=== PATIENT | female | born 1980 | race African-American/Black ===

== ENCOUNTER 2016-10-19 12:57 | Emergency (ER) | payer OTHER ==
[~2016-10-19] VITALS: Ht 167.6 cm; Wt 158.8 kg
[~2016-10-19 12:57] MED LIST: BENZ200C39 PO; METH4TAB2 PO; PRED50TA PO; VENTOLIN HFA18 GM IH
[2016-10-19] MEDS ORDERED: KETOROLAC TROMETHAMINE 30 MG/ML INJ. IV ONE (13:15)
[2016-10-19] MEDS ORDERED: diphenhydrAMINE 50 MG/ML VIAL IVP ONE (13:15)
[2016-10-19] MEDS ORDERED: IV NORMAL SALINE 1000ML BAG 1,000 ML IV ONE (13:15)
[2016-10-19 13:30] LABS: BASO % 1 % (0-3); EOS % 1 % (0-3); HEMATOCRIT 35.8 % (36.0-47.0); HEMOGLOBIN 11.4 g/dL (12.0-15.5); LYMPH # 1.4 x10^3/uL (1.0-4.8); LYMPH % 32 % (24-48); MEAN CORPUSCULAR HEMOGLOBIN 25 pg (25-35); MEAN CORPUSCULAR HGB CONC 32 g/dL (31-37); MEAN CORPUSCULAR VOLUME 80 fL (79-100); MONO % 9 % (0-9); NEUT % 57 % (31-73); PLATELET COUNT 114 x10^3/uL (140-400); RED CELL DISTRIBUTION WIDTH 14.9 % (11.5-14.5); WHITE BLOOD COUNT 4.2 x10^3/uL (4.0-11.0)
--- NOTE | 2016-10-19 13:33 | EKG ---
[facility] [address] [place] [address] Test Date: 2016-10-19 Test Time: 13:27:51 Pat Name: KATELYN DOMÍNGUEZ Department: Room: Gender: F Social Insurance Adviser: : 1980 Requested By: EDIL ALCANTARA Order Number: [id number] Reading MD: Edward Carvalho Measurements Intervals Danese Rate: 59 P: 26 OR: 168 QRS: 5 QRSD: 74 T: 10 QT: 404 QTc: 404 Interpretive Statements SINUS RHYTHM NORMAL ECG RI6.01 Unconfirmed report Compared to ECG 06/01/2014 19:29:17 No significant changes Electronically Signed On 10-24-2016 9:30:49 CDT by Edward Carvalho
--- NOTE | 2016-10-19 13:33 | PHYS DOC ---
Past Medical History Past Medical History: Asthma Additional Past Medical Histor: OBESITY Past Surgical History: , Gastric Bypass Additional Past Surgical Histo: BARIATRIC SX, BILATERAL KNEE Alcohol Use: Rarely Drug Use: None Adult General Chief Complaint Chief Complaint: DIZZY/LIGHT HEADED HPI HPI Patient is a 36 year old female presenting to the emergency department for evaluation of dizziness. Patient is not able to describe the symptoms very well but she does not say it is spinning sensation or feeling that she is going to pass out rather it feels as if there is pressure in her head and that it feels like she was on an airplane. She says she feels woozy and that the sensation is worse when she moves her head. She denies any nausea vomiting or pain anywhere including head neck chest back or abdomen. Patient says that she has had gastric bypass surgery and may not be drinking enough fluids currently and she feels that she may be dehydrated. Review of Systems Review of Systems Constitutional: Denies fever or chills [] Eyes: Denies change in visual acuity, redness, or eye pain [] HENT: Denies nasal congestion or sore throat [] Respiratory: Denies cough or shortness of breath [] Cardiovascular: No additional information not addressed in HPI [] GI: Denies abdominal pain, nausea, vomiting, bloody stools or diarrhea [] : Denies dysuria or hematuria [] Musculoskeletal: Denies back pain or joint pain [] Integument: Denies rash or skin lesions [] Neurologic: Denies headache, focal weakness. +dizziness Current Medications Current Medications Current Medications Medications (Trade) Dose Ordered Sig/Emil Start Time Stop Time Status Last Admin Dose Admin Diphenhydramine HCl (Benadryl) 50 mg 1X ONCE 10/19/16 13:15 10/19/16 13:16 DC 10/19/16 13:24 50 MG Ketorolac Tromethamine (Toradol) 30 mg 1X ONCE 10/19/16 13:15 10/19/16 13:16 DC 10/19/16 13:29 30 MG Sodium Chloride 1,000 ml @ 1,000 mls/hr 1X ONCE 10/19/16 13:15 10/19/16 14:14 DC 10/19/16 13:19 1,000 MLS/HR Allergies Allergies Allergies Coded Allergies Type Severity Reaction Last Updated Verified No Known Drug Allergies 01/14/15 No Physical Exam Physical Exam Constitutional: Well developed, well nourished, no acute distress, non-toxic appearance. [] HENT: Normocephalic, atraumatic, bilateral external ears normal, oropharynx moist, no oral exudates, nose normal. [] Eyes: PERRLA, EOMI, conjunctiva normal, no discharge. [] Neck: Normal range of motion, no tenderness, supple, no stridor. [] Cardiovascular:Heart rate regular rhythm, no murmur [] Lungs & Thorax: Bilateral breath sounds clear to auscultation [] Abdomen: Bowel sounds normal, soft, no tenderness, no masses, no pulsatile masses. [] Skin: Warm, dry, no erythema, no rash. [] Back: No tenderness, no CVA tenderness. [] Extremities: No tenderness, no cyanosis, no clubbing, ROM intact, no edema. [] Neurologic: Alert and oriented X 3, normal motor function, normal sensory function, no focal deficits noted. [] Current Patient Data Vital Signs Vital Signs Date Time Temp Pulse Resp B/P (MAP) Pulse Ox O2 Delivery O2 Flow Rate FiO2 10/19/16 13:03 97.8 71 18 141/63 (89) 97 Room Air 97.8 Lab Values Laboratory Tests Test 10/19/16 13:08 10/19/16 13:20 10/19/16 13:39 POC Urine HCG, Qualitative Hcg negative (Negative) White Blood Count 4.2 x10^3/uL (4.0-11.0) Red Blood Count 4.50 x10^6/uL (3.50-5.40) Hemoglobin 11.4 g/dL (12.0-15.5) L Hematocrit 35.8 % (36.0-47.0) L Mean Corpuscular Volume 80 fL (79-100) Mean Corpuscular Hemoglobin 25 pg (25-35) Mean Corpuscular Hemoglobin Concent 32 g/dL (31-37) Red Cell Distribution Width 14.9 % (11.5-14.5) H Platelet Count 114 x10^3/uL (140-400) L Neutrophils (%) (Auto) 57 % (31-73) Lymphocytes (%) (Auto) 32 % (24-48) Monocytes (%) (Auto) 9 % (0-9) Eosinophils (%) (Auto) 1 % (0-3) Basophils (%) (Auto) 1 % (0-3) Neutrophils # (Auto) 2.4 x10^3uL (1.8-7.7) Lymphocytes # (Auto) 1.4 x10^3/uL (1.0-4.8) Monocytes # (Auto) 0.4 x10^3/uL (0.0-1.1) Eosinophils # (Auto) 0.1 x10^3/uL (0.0-0.7) Basophils # (Auto) 0.0 x10^3/uL (0.0-0.2) Sodium Level 143 mmol/L (136-145) Potassium Level 4.2 mmol/L (3.5-5.1) Chloride Level 107 mmol/L (98-107) Carbon Dioxide Level 29 mmol/L (21-32) Anion Gap 7 (6-14) Blood Urea Nitrogen 17 mg/dL (7-20) Creatinine 0.8 mg/dL (0.6-1.0) Estimated GFR (Cockcroft-Gault) 99.4 BUN/Creatinine Ratio 21 (6-20) H Glucose Level 89 mg/dL (70-99) Calcium Level 8.8 mg/dL (8.5-10.1) Magnesium Level 2.1 mg/dL (1.8-2.4) Total Bilirubin 0.4 mg/dL (0.2-1.0) Aspartate Amino Transferase (AST) 13 U/L (15-37) L Alanine Aminotransferase (ALT) 17 U/L (14-59) Alkaline Phosphatase 67 U/L (46-116) Creatine Kinase 81 U/L (26-192) Total Protein 7.4 g/dL (6.4-8.2) Albumin 3.4 g/dL (3.4-5.0) Albumin/Globulin Ratio 0.9 (1.0-1.7) L Urine Collection Type Unknown Urine Color Yellow Urine Clarity Clear Urine pH 6.5 Urine Specific Stuart 1.025 Urine Protein Negative mg/dL (NEG-TRACE) Urine Glucose (UA) Negative mg/dL (NEG) Urine Ketones (Stick) Negative mg/dL (NEG) Urine Blood Large (NEG) Urine Nitrite Negative (NEG) Urine Bilirubin Negative (NEG) Urine Urobilinogen Dipstick 1.0 mg/dL (0.2 mg/dL) Urine Leukocyte Esterase Trace (NEG) Urine RBC 1-2 /HPF (0-2) Urine WBC 1-4 /HPF (0-4) Urine Squamous Epithelial Cells Many /LPF Urine Bacteria Few /HPF (0-FEW) Urine Mucus Mod /LPF Laboratory Tests 10/19/16 13:20 Laboratory Tests 10/19/16 13:20 EKG EKG Normal sinus rhythm at 59 bpm with normal axis no obvious ST elevation or depression and normal T waves. Radiology/Procedures Radiology/Procedures [] Course & Med Decision Making Course & Med Decision Making Patient presenting to the emergency department for evaluation of nonspecific dizziness. This seems to be more positional and will stop on its own. She was given Toradol and Benadryl and her dizziness improved significant family however she said she was still having some nausea so Zofran was given. Nausea resolved and she was able to tolerate fluids without any difficulty. Patient will be sent home on meclizine and Zofran. Given patient appears well with normal vital signs benign physical exam and workup she will be discharged. Patient aware and agreeable with plan for discharge and verbalized understanding of the need for short-term follow-up and strict ER return precautions discussed including worsening pain dizziness vomiting or other general concerns. Dragon Disclaimer Dragon Disclaimer This electronic medical record was generated, in whole or in part, using a voice recognition dictation system. Departure Departure Impression: Primary Impression: Dizziness Additional Impression: Nausea alone Disposition: HOME, SELF-CARE Condition: GOOD Referrals: BRANDO BO APRN (PCP) Patient Instructions: Dizziness Scripts Ondansetron (ZOFRAN ODT) 4 Mg Tab.rapdis 4 MG PO BID Y for NAUSEA/VOMITING, #10 TAB Prov: EDIL ALCANTARA DO 10/19/16 Meclizine Hcl (MECLIZINE HCL) 25 Mg Tablet 1 TAB PO PRN TID Y for DIZZINESS, #12 TAB Prov: EDIL ALCANTARA DO 10/19/16 Problem Qualifiers EDIL ALCANTARA DO Oct 19, 2016 13:33
[2016-10-19 13:46] LABS: CALCIUM 8.8 mg/dL (8.5-10.1); CREATININE 0.8 mg/dL (0.6-1.0); GFR 99.4; POTASSIUM 4.2 mmol/L (3.5-5.1)
[2016-10-19 13:50] LABS: ALBUMIN 3.4 g/dL (3.4-5.0); ALBUMIN/GLOBULIN RATIO 0.9 (1.0-1.7); MAGNESIUM 2.1 mg/dL (1.8-2.4); TOTAL BILIRUBIN 0.4 mg/dL (0.2-1.0); TOTAL PROTEIN 7.4 g/dL (6.4-8.2)
[2016-10-19 14:19] LABS: BILIRUBIN,URINE NEGATIVE (NEG); GLUCOSE,URINE NEGATIVE (NEG); NITRITE,URINE NEGATIVE (NEG); PH,URINE 6.5; PROTEIN,URINE NEGATIVE (NEG-TRACE)
[2016-10-19 14:31] LABS: BACTERIA,URINE FEW /HPF (0-FEW); SQUAMOUS EPITHELIAL CELL,UR MANY /LPF
[2016-10-19] MEDS ORDERED: ONDANSETRON PF 4 MG/2 ML VIAL. IV ONE (14:45)
[2016-10-19] MEDS ORDERED: MECL25TA3 PO (14:48)
[2016-10-19] MEDS ORDERED: ONDA4TAB10 PO (14:48)
[2016-10-19 14:59] VITALS: BP 114/58
== END 2016-10-19 15:23 | disposition home or self-care (01) ==
LOC: ER 12:57
DX: R42 Dizziness and giddiness (principal); R11.0 Nausea; J45.909 Unspecified asthma, uncomplicated; E66.9 Obesity, unspecified; Z68.43 Body mass index [BMI] 50.0-59.9, adult; Z98.84 Bariatric surgery status
CPT/HCPCS: 36415; 80053; 81001; 81025; 82550; 83735; 85027; 87086; 93005; 96361; 96374; 96375; 99285; J1200; J1885; J2405; J7030

== ENCOUNTER 2018-04-14 20:06 | Emergency (ER) | payer OTHER ==
[~2018-04-14] VITALS: Ht 167.6 cm; Wt 145.1 kg
[~2018-04-14 20:06] MED LIST changes: -BENZ200C39 PO; +BENZ200C47 PO; +HYDR-3164 PO; +MECL25TA3 PO; +ONDA4TAB10 PO
[2018-04-14 21:00] LABS: BILIRUBIN,URINE SMALL (NEG); CLARITY,URINE CLEAR; COLOR,URINE AMBER; NITRITE,URINE NEGATIVE (NEG); PROTEIN,URINE 30 mg/dL (NEG-TRACE)
[2018-04-14] MEDS ORDERED: KETOROLAC 30 MG/ML VIAL. IV ONE (21:00)
[2018-04-14] MEDS ORDERED: FAMOTIDINE 20 MG/2 ML VIAL IVP ONE (21:00)
[2018-04-14] MEDS ORDERED: IV NORMAL SALINE 1000ML BAG 1,000 ML IV ONE (21:00)
[2018-04-14] MEDS ORDERED: ONDANSETRON PF 4 MG/2 ML VIAL. IV ONE (21:00)
[2018-04-14 21:06] LABS: BACTERIA,URINE FEW /HPF (0-FEW); RBC,URINE OCC /HPF (0-2); SQUAMOUS EPITHELIAL CELL,UR MANY /LPF; WBC,URINE OCC /HPF (0-4)
[2018-04-14 21:24] LABS: BASO % 1 % (0-3); EOS % 1 % (0-3); HEMOGLOBIN 11.1 g/dL (12.0-15.5); LYMPH # 0.7 x10^3/uL (1.0-4.8); LYMPH % 35 % (24-48); MEAN CORPUSCULAR HEMOGLOBIN 24 pg (25-35); MEAN CORPUSCULAR HGB CONC 32 g/dL (31-37); MEAN CORPUSCULAR VOLUME 77 fL (79-100); MONO # 0.3 x10^3/uL (0.0-1.1); MONO % 14 % (0-9); NEUT % 51 % (31-73); PLATELET COUNT 98 x10^3/uL (140-400); RED BLOOD COUNT 4.57 x10^6/uL (3.50-5.40); RED CELL DISTRIBUTION WIDTH 16.5 % (11.5-14.5); WHITE BLOOD COUNT 2.1 x10^3/uL (4.0-11.0)
[2018-04-14 21:34] LABS: CALCIUM 8.5 mg/dL (8.5-10.1); CREATININE 0.9 mg/dL (0.6-1.0); GFR 86.2; POTASSIUM 3.8 mmol/L (3.5-5.1)
[2018-04-14 21:39] LABS: ALBUMIN 3.5 g/dL (3.4-5.0); ALBUMIN/GLOBULIN RATIO 0.8 (1.0-1.7); MAGNESIUM 1.9 mg/dL (1.8-2.4); TOTAL BILIRUBIN 0.6 mg/dL (0.2-1.0); TOTAL PROTEIN 8.1 g/dL (6.4-8.2)
--- NOTE | 2018-04-14 21:43 | PHYS DOC ---
Past Medical History Past Medical History: Asthma, Other Additional Past Medical Histor: OBESITY Past Surgical History: Additional Past Surgical Histo: sleeve gastrectomy, BILATERAL KNEE Alcohol Use: Rarely Drug Use: None Adult General Chief Complaint Chief Complaint: NAUSEA/VOMITING/DIARRHA HPI HPI Patient is a 37 year old female with past medical history of morbid obesity who presents with or days of cough, generalized weakness, malaise and a one-day history of nausea vomiting and nonbloody diarrhea. Patient notes that her cough is nonproductive and is worse when lying down. Patient notes that she has taken [place] cold and flu with some relief of cough. Patient notes she has also had subjective fevers and chills but has not taken her temperature at home. Patient notes that today she has been unable to tolerate by mouth intake due to vomiting. Patient notes she has had 10 episodes of watery bowel movements today. She notes that her daughter had a similar illness last week. Review of Systems Review of Systems Constitutional: Notes subjective fever and chills [] Eyes: Denies change in visual acuity, redness, or eye pain [] HENT: Denies nasal congestion or sore throat [] Respiratory: Notes cough and shortness of breath [] Cardiovascular: Denies chest pain or palpitations [] GI: Notes abdominal pain, nausea, vomiting, diarrhea. [] : Denies dysuria or hematuria [] Musculoskeletal: Denies back pain or joint pain Notes myalgias [] Integument: Denies rash or skin lesions [] Neurologic: Notes headache. Denies focal weakness or sensory changes [] Complete systems were reviewed and found to be within normal limits, except as documented in this note. Current Medications Current Medications Current Medications Medications (Trade) Dose Ordered Sig/[facility] Start Time Stop Time Status Last Admin Dose Admin Famotidine (Pepcid Vial) 20 mg 1X ONCE 04/14/18 21:00 04/14/18 21:01 DC 04/14/18 21:18 20 MG Ketorolac Tromethamine (Toradol 30mg Vial) 15 mg 1X ONCE 04/14/18 21:00 04/14/18 21:01 DC 04/14/18 21:19 15 MG Ondansetron HCl (Zofran) 4 mg 1X ONCE 04/14/18 21:00 04/14/18 21:01 DC 04/14/18 21:18 4 MG Sodium Chloride 1,000 ml @ 1,000 mls/hr 1X ONCE 04/14/18 21:00 04/14/18 21:59 DC 04/14/18 21:18 1,000 MLS/HR Allergies Allergies Allergies Coded Allergies Type Severity Reaction Last Updated Verified No Known Drug Allergies 01/14/15 No Physical Exam Physical Exam Constitutional: Well developed, well nourished, no acute distress, non-toxic appearance, obese HENT: Normocephalic, atraumatic, bilateral TMs normal, oropharynx moist, no oral exudates, nose normal. [] Eyes: PERRL, EOMI, conjunctiva normal, no discharge. [] Neck: Normal range of motion, no tenderness, supple, no meningeal signs Cardiovascular: Heart rate regular rhythm, no murmur [] Lungs & Thorax: Bilateral breath sounds clear to auscultation [] Abdomen: Soft, nondistended, obese. Mild tenderness noted in the left lower quadrant. [] Skin: Warm, dry, no erythema, no rash. [] Back: No tenderness, no CVA tenderness. [] Extremities: No tenderness, ROM intact Neurologic: Alert and oriented X 3, normal motor function, normal sensory function, no focal deficits noted. [] Psychologic: Affect normal, judgement normal, mood normal. [] Current Patient Data Vital Signs Vital Signs Date Time Temp Pulse Resp B/P (MAP) Pulse Ox O2 Delivery O2 Flow Rate FiO2 04/14/18 20:18 98.7 78 20 154/81 (105) 97 Room Air 98.7 Lab Values Laboratory Tests Test 04/14/18 20:26 04/14/18 20:30 04/14/18 21:10 POC Urine HCG, Qualitative Hcg negative (Negative) Urine Collection Type Unknown Urine Color Shelli Urine Clarity Clear Urine pH 6.0 Urine Specific Gary >=1.030 Urine Protein 30 mg/dL (NEG-TRACE) Urine Glucose (UA) Negative mg/dL (NEG) Urine Ketones (Stick) 15 mg/dL (NEG) Urine Blood Moderate (NEG) Urine Nitrite Negative (NEG) Urine Bilirubin Small (NEG) Urine Urobilinogen Dipstick 1.0 mg/dL (0.2 mg/dL) Urine Leukocyte Esterase Negative (NEG) Urine RBC Occ /HPF (0-2) Urine WBC Occ /HPF (0-4) Urine Squamous Epithelial Cells Many /LPF Urine Bacteria Few /HPF (0-FEW) Urine Mucus Mod /LPF White Blood Count 2.1 x10^3/uL (4.0-11.0) L Red Blood Count 4.57 x10^6/uL (3.50-5.40) Hemoglobin 11.1 g/dL (12.0-15.5) L Hematocrit 35.0 % (36.0-47.0) L Mean Corpuscular Volume 77 fL (79-100) L Mean Corpuscular Hemoglobin 24 pg (25-35) L Mean Corpuscular Hemoglobin Concent 32 g/dL (31-37) Red Cell Distribution Width 16.5 % (11.5-14.5) H Platelet Count 98 x10^3/uL (140-400) L Neutrophils (%) (Auto) 51 % (31-73) Lymphocytes (%) (Auto) 35 % (24-48) Monocytes (%) (Auto) 14 % (0-9) H Eosinophils (%) (Auto) 1 % (0-3) Basophils (%) (Auto) 1 % (0-3) Neutrophils # (Auto) 1.0 x10^3uL (1.8-7.7) L Lymphocytes # (Auto) 0.7 x10^3/uL (1.0-4.8) L Monocytes # (Auto) 0.3 x10^3/uL (0.0-1.1) Eosinophils # (Auto) 0.0 x10^3/uL (0.0-0.7) Basophils # (Auto) 0.0 x10^3/uL (0.0-0.2) Sodium Level 137 mmol/L (136-145) Potassium Level 3.8 mmol/L (3.5-5.1) Chloride Level 101 mmol/L (98-107) Carbon Dioxide Level 27 mmol/L (21-32) Anion Gap 9 (6-14) Blood Urea Nitrogen 11 mg/dL (7-20) Creatinine 0.9 mg/dL (0.6-1.0) Estimated GFR (Cockcroft-Gault) 86.2 BUN/Creatinine Ratio 12 (6-20) Glucose Level 89 mg/dL (70-99) Calcium Level 8.5 mg/dL (8.5-10.1) Magnesium Level 1.9 mg/dL (1.8-2.4) Total Bilirubin 0.6 mg/dL (0.2-1.0) Aspartate Amino Transferase (AST) 17 U/L (15-37) Alanine Aminotransferase (ALT) 17 U/L (14-59) Alkaline Phosphatase 75 U/L (46-116) Total Protein 8.1 g/dL (6.4-8.2) Albumin 3.5 g/dL (3.4-5.0) Albumin/Globulin Ratio 0.8 (1.0-1.7) L Lipase 76 U/L (73-393) Laboratory Tests 04/14/18 21:10 Laboratory Tests 04/14/18 21:10 EKG EKG [] Radiology/Procedures Radiology/Procedures [] Course & Med Decision Making Course & Med Decision Making 37-year-old female presenting with cough, generalized malaise, nausea vomiting and diarrhea. Abdomen nonperitoneal. Lungs clear to auscultation. Patient given 1 L normal saline bolus, Toradol for headache, and Zofran for nausea. Labs collected and evaluated. CBC shows stable chronic leukocytopenia, anemia and thrombocytopenia. Patient given antibiotics on a watch and wait basis. Patient prescribed Levaquin and Flagyl. Patient reports she is feeling better after the fluids and Zofran. Patient will be given prescriptions for ODT Zofran for nausea and Robitussin-AC for cough. Patient stable for discharge with outpatient follow-up with PCP. Discussed findings and plan with patient, who acknowledges understanding and agreement. [] Dragon Disclaimer Dragon Disclaimer This electronic medical record was generated, in whole or in part, using a voice recognition dictation system. Departure Departure Impression: Primary Impression: Nausea vomiting and diarrhea Additional Impressions: URI (upper respiratory infection) Pancytopenia Disposition: 01 HOME, SELF-CARE Condition: STABLE Referrals: NO PCP (PCP) Patient Instructions: Diarrhea, [id number], Nausea and Vomiting, [id number] , Upper Respiratory Infection, Adult, [id number] Additional Instructions: Hold antibiotics for 48 hours. If symptoms worsen or for fever > 100.3 F after 48 hours then start antibiotics as prescribed. Scripts Guaifenesin/Codeine Phosphate (GUAIFENESIN-CODEINE SYRUP) 118 Ml Liquid 5-10 ML PO Q8HRS PRN for COUGH, #240 ML Prov: SIMON DIANE DO 04/14/18 Metronidazole (FLAGYL) 500 Mg Tablet 500 MG PO TID, #21 TAB Prov: SIMON DIANE DO 04/14/18 Levofloxacin (LEVAQUIN) 500 Mg Tablet 1 TAB PO DAILY for urinary tract infection, #7 TAB Prov: SIMON DIANE DO 04/14/18 Famotidine (PEPCID) 20 Mg Tablet 20 MG PO BID, #14 TAB Prov: SIMON DIANE DO 04/14/18 Ondansetron (ONDANSETRON ODT) 4 Mg Tab.rapdis 1 TAB PO PRN Q6-8HRS PRN for NAUSEA, #16 TAB Prov: SIMON DIANE DO 04/14/18 Problem Qualifiers Additional Impressions: URI (upper respiratory infection) URI type: unspecified URI Qualified Codes: J06.9 - Acute upper respiratory infection, unspecified SIMON DIANE DO Apr 14, 2018 21:43
[2018-04-14] MEDS ORDERED: GUAI118L13 PO (22:00)
[2018-04-14] MEDS ORDERED: FAMO-63 PO (22:00)
[2018-04-14] MEDS ORDERED: METR500T PO (22:00)
[2018-04-14] MEDS ORDERED: ONDA4TAB12 PO (22:00)
[2018-04-14] MEDS ORDERED: LEVO500T59 PO (22:00)
[2018-04-14 22:17] VITALS: BP 127/62
== END 2018-04-14 22:24 | disposition home or self-care (01) ==
LOC: ER 20:06
DX: J06.9 Acute upper respiratory infection, unspecified (principal); R11.2 Nausea with vomiting, unspecified; R19.7 Diarrhea, unspecified; D61.818 Other pancytopenia; D69.6 Thrombocytopenia, unspecified; D64.9 Anemia, unspecified; D72.819 Decreased white blood cell count, unspecified; J45.909 Unspecified asthma, uncomplicated; E66.01 Morbid (severe) obesity due to excess calories; Z98.890 Other specified postprocedural states; Z68.43 Body mass index [BMI] 50.0-59.9, adult
CPT/HCPCS: 36415; 80053; 81001; 81025; 83690; 83735; 85025; 96361; 96374; 96375; 99283; J1885; J2405; J3490; J7030

== ENCOUNTER 2020-01-11 18:43 | Emergency (ER) | payer MEDICAID ==
[~2020-01-11] VITALS: Ht 162.6 cm; Wt 155.8 kg
[~2020-01-11 18:43] MED LIST changes: +AZIT250T PO; +FAMO-63 PO; +GUAI118L13 PO; +GUAI120L35 PO; +LEVO500T59 PO; +MECL-75 PO; -MECL25TA3 PO; +METR500T PO; +ONDA4TAB12 PO
[2020-01-11 19:14] VITALS: BP 144/94
[2020-01-11] MEDS ORDERED: ACET325T9 PO (19:15)
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
[2020-01-11] MEDS ORDERED: ACETAMINOPHEN 500 MG TABLET PO ONE (19:30)
== END 2020-01-11 19:34 | disposition home or self-care (01) ==
LOC: ER 18:43
DX: G89.11 Acute pain due to trauma (principal); M25.561 Pain in right knee; M25.562 Pain in left knee; M54.5 Low back pain; R20.2 Paresthesia of skin; J45.909 Unspecified asthma, uncomplicated; E66.9 Obesity, unspecified; Z68.43 Body mass index [BMI] 50.0-59.9, adult; Z98.890 Other specified postprocedural states; Z90.89 Acquired absence of other organs; V49.9XXA Car occupant (driver) (passenger) injured in unspecified traffic accident, initial encounter; Y93.89 Activity, other specified; Y92.413 State road as the place of occurrence of the external cause; Y99.8 Other external cause status
CPT/HCPCS: 99282